=== PATIENT | female | born 1995 | race Caucasian/White ===

== ENCOUNTER → 2018-10-05 | Outpatient (CLI) | payer OTHER ==
[~2018-10-05] MED LIST: CEF300 PO; ESCI20TA38 PO; GADOBENATE 529MG/1ML 15ML VIAL IVP ONE; HYDR10TA3 PO; NS(*) 0.9% 50 ML BAG 50 ML ONE
--- NOTE | 2018-10-05 11:31 | RADIOLOGY IMAGING REPORT ---
FACILITY: [facility] PATIENT NAME: Rose Marie Schilling : 1995 MR: [id number] V: [id number] EXAM DATE: ORDERING PHYSICIAN: CAMERON ROMERO TECHNOLOGIST: Location: [facility] Patient: Rose Marie Schilling : 1995 Visit/Account:[id number] Date of Sevice: 10/05/2018 Examination: MR brain without and with contrast History: Elevated prolactin Comparison: None Technique: Multiplane pre and postcontrast MR imaging performed through the pituitary region. 15 mL MultiHance injected. Axial flair and diffusion acquisitions obtained through the brain. Findings: No hydrocephalus or midline shift. Normal parenchymal signal. Normal optic chiasm. Midline and normal infundibulum. Normal cavernous sinuses. Expected hyperinte nse signal within the posterior aspect of the sella. Normal sized pituitary gland exhibits uniform enhancement without apparent abnormality. IMPRESSION: Normal pituitary MR without and with contrast. No abnormality seen to explain the elevated prolactin level. Report Dictated By: Roscoe Rubin MD at 10/05/2018 11:21 AM Report E-Signed By: Roscoe Rubin MD at 10/05/2018 11:26 AM WSN:[id number]
== END ==
LOC: MRI 00:41
PROVIDERS: ATTEND Physician Assistant
DX: E22.1 Hyperprolactinemia (principal)
CPT/HCPCS: 70553; A9577; J7050